=== PATIENT | female | born 1995 | race African-American/Black ===

== ENCOUNTER 2022-12-13 11:43 | Emergency (ER) | payer BC ==
[~2022-12-13] VITALS: Ht 162.6 cm; Wt 90.4 kg
[2022-12-13] MEDS ORDERED: AMOXICILLIN500 MG PO (13:42)
[2022-12-13] MEDS ORDERED: DEXAMETHASONE SOD PHOS 10 MG/1 ML VIAL IM ONE (13:45)
[2022-12-13] MEDS ORDERED: DEXAMETHASONE SOD PHOS INJ 4 MG/ML SDV ONE (13:52)
== END 2022-12-13 13:50 | disposition home or self-care (01) ==
LOC: FSED 11:55
DX: J02.9 Acute pharyngitis, unspecified (principal); J35.1 Hypertrophy of tonsils
CPT/HCPCS: 81025; 83518; 96372; 99283; J1100